=== PATIENT | male | born 1985 ===

== ENCOUNTER → 2016-11-10 | Outpatient (CLI) | payer OTHER ==
--- NOTE | 2016-11-10 10:44 | DX ---
3 views right thumb Reason for examination: Pain following trauma. Findings: There is a small avulsion fracture at the base of the distal phalanx. Soft tissue swelling is seen in the region. No radiopaque foreign bodies identified. Impression: Small avulsion at the base of the distal phalanx of the right thumb.
== END ==
LOC: BMCIMAGING 09:44
PROVIDERS: ATTEND Family Medicine
DX: S62.511A Displaced fracture of proximal phalanx of right thumb, initial encounter for closed fracture (principal)